=== PATIENT | male | born 1940 | race Caucasian/White ===

== ENCOUNTER → 2018-12-28 | Outpatient (CLI) | payer MEDICARE, BC | LOC: COL.RAD 13:15 | DX: R10.30 Lower abdominal pain, unspecified (principal) ==

== ENCOUNTER → 2022-02-19 | Outpatient (CLI) | payer MEDICARE, BC | LOC: COL.RAD 15:48 | DX: N44.1 Cyst of tunica albuginea testis (principal); N43.3 Hydrocele, unspecified ==